=== PATIENT | female | born 1970 | race American Indian/Alaskan Native ===

== ENCOUNTER 2019-04-12 21:21 | Emergency (ER) | payer OTHER ==
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
[2019-04-13 02:33] VITALS: BP 122/86
== END 2019-04-13 02:33 | disposition home or self-care (01) ==
LOC: ED 21:21
DX: R25.2 Cramp and spasm (principal); M54.2 Cervicalgia; M25.512 Pain in left shoulder; M25.552 Pain in left hip
CPT/HCPCS: 72040; 72100; 99283